=== PATIENT | female | born 1985 | race Caucasian/White ===

== ENCOUNTER 2018-04-27 17:16 | Observation (INO) | payer BC ==
[2018-04-27] MEDS ORDERED: NS 0.9% 1000 ML* 1,000 ML IV ONE (18:12)
[2018-04-27 18:31] LABS: ABS Basophils 0.1 10^3/ul (0-0.2); ABS Eosinophils 0.1 10^3/ul (0-0.6); ABS Lymphocytes 2.2 10^3/ul (1.0-4.8); ABS Monocytes 0.4 10^3/ul (0-0.8); ABS Neutrophils 5.8 10^3/ul (1.5-7.7); ABS Nucleated RBC 0 10^3/ul; Eosinophil % 0.8 % (0-6); Hematocrit 39 % (35-47); Hemoglobin 13.4 g/dl (12.0-16.0); Lymphocyte % 25.4 % (25-47); Mean Corpuscular HGB Conc 34 g/dl (31-36); Mean Corpuscular Hemoglobin 30 pg (27-31); Mean Corpuscular Volume 87 fL (80-97); Mean Platelet Volume 9.9 um3 (7.4-10.4); Nucleated Red Blood Cells % 0.1; Platelet Count 245 10^3/ul (150-450); Red Blood Count 4.55 10^6/ul (4.00-5.40); Red Cell Distribution Width 14 % (10.5-15); White Blood Count 8.6 10^3/ul (3.5-10.8)
[2018-04-27] MEDS ORDERED: Ondansetron INJ* 2 MG/ML VIAL IV ONE (18:52)
[2018-04-27 18:59] LABS: EGFR Non-African American 116.6 (>60)
[2018-04-27 19:05] LABS: Urine Appearance Clear; Urine Blood 3+ (Negative); Urine Color Yellow; Urine Ketones Negative (Negative); Urine Protein 1+(30 mg/dL) (Negative); Urine Red Blood Cell 3+(>10/hpf) (Absent); Urine Specific Gravity 1.018 (1.010-1.030); Urine Urobilinogen Negative (Negative); Urine White Blood Cell 3+(>20/hpf) (Absent)
--- NOTE | 2018-04-27 19:06 | ED ---
GI/ HPI - HPI Summary HPI Summary: This is scribe Lacy Kahn documenting for attending Shaheen Salomon MD. This patient is a 33 year old F presenting to [facility] with a chief complaint of right suprapubic pain and lower back pain worse on the right since 04/24/18. She additionally reports nausea and vaginal bleeding since 03/17/18, with bright red blood today. She states symptoms are worsened when eating. Pain is 6/10, upon triage. Patient reports four recent positive at home tests. PMHx of preeclampsia. Denies PMHx PID and STDs. May have history of endometriosis. No oral contraceptive use A1. I, Dr. Saolmon, personally performed the services described in this documentation as scribed in my presence and it is both accurate and complete. - History of Current Complaint Chief Complaint: EDAbdPain Time Seen by Provider: 04/27/18 18:02 Stated Complaint: ABD PAIN Hx Obtained From: Patient Onset/Duration: Started Days Ago Timing: Constant Current Severity: Moderate Vaginal Bleeding Description: Bright Red Pain Intensity: 6 Location of Pain: Suprapubic - right Associated Signs and Symptoms: Positive: Back Pain, Other: - vaginal bleeding - Allergy/Home Medications Allergies/Adverse Reactions: Allergies Allergy/AdvReac Type Severity Reaction Status Date / Time cefprozil [From Cefzil] Allergy Anaphylatic Verified 04/27/18 18:16 Shock latex Allergy Rash Verified 04/27/18 18:16 morphine Allergy Hives Verified 04/27/18 18:16 PMH/Surg Hx/FS Hx/Imm Hx Endocrine/Hematology History: Denies: Hx Diabetes Cardiovascular History: Reports: Hx Hypertension - preeclampsia - currently resolved EENT History: Denies: Hx Deafness - Immunization History Immunizations Up to Date: Yes Infectious Disease History: No Infectious Disease History: Denies: Traveled Outside the [place] in Last 30 Days - Social History Alcohol Use: Rare Substance Use Type: Reports: None Smoking Status (MU): Never Smoked Tobacco Review of Systems Positive: Nausea Positive: pain - suprapubic, other - vaginal bleeding Positive: Myalgia - back pain All Other Systems Reviewed And Are Negative: Yes Physical Exam - Summary Physical Exam Summary: VITAL SIGNS: Reviewed. GENERAL: Patient is a well-developed and nourished female who is lying comfortable in the stretcher. Patient is not in any acute respiratory distress. HEAD AND FACE: No signs of trauma. No ecchymosis, hematomas or skull depressions. No sinus tenderness. EYES: PERRLA, EOMI x 2, No injected conjunctiva, no nystagmus. EARS: Hearing grossly intact. Ear canals and tympanic membranes are within normal limits. MOUTH: Oropharynx within normal limits. NECK: Supple, trachea is midline, no adenopathy, no JVD, no carotid bruit, no c- spine tenderness, neck with full ROM. CHEST: Symmetric, no tenderness at palpation LUNGS: Clear to auscultation bilaterally. No wheezing or crackles. CVS: Regular rate and rhythm, S1 and S2 present, no murmurs or gallops appreciated. ABDOMEN: Soft, R pelvic tenderness. No signs of distention. No rebound no guarding, and no masses palpated. Bowel sounds are normal. EXTREMITIES: FROM in all major joints, no edema, no cyanosis or clubbing. NEURO: Alert and oriented x 3. No acute neurological deficits. Speech is normal and follows commands. SKIN: Dry and warm Triage Information Reviewed: Yes Vital Signs On Initial Exam: Initial Vitals Temp Pulse Resp BP Pulse Ox 98.9 F 79 16 147/73 100 04/27/18 17:19 04/27/18 17:19 04/27/18 17:19 04/27/18 17:19 04/27/18 17:19 Vital Signs Reviewed: Yes Diagnostics - Vital Signs Vital Signs Temp Pulse Resp BP Pulse Ox 04/27/18 17:19 98.9 F 79 16 147/73 100 - Laboratory Lab Results: Lab Results 04/27/18 04/27/18 Range/Units 18:26 18:26 WBC 8.6 (3.5-10.8) 10^3/ul RBC 4.55 (4.00-5.40) 10^6/ul Hgb 13.4 (12.0-16.0) g/dl Hct 39 (35-47) % MCV 87 (80-97) fL MCH 30 (27-31) pg MCHC 34 (31-36) g/dl RDW 14 (10.5-15) % Plt Count 245 (150-450) 10^3/ul MPV 9.9 (7.4-10.4) um3 Neut % (Auto) 67.7 (38-83) % Lymph % (Auto) 25.4 (25-47) % [place] % (Auto) 5.2 (0-7) % Eos % (Auto) 0.8 (0-6) % Baso % (Auto) 0.9 (0-2) % Absolute Neuts (auto) 5.8 (1.5-7.7) 10^3/ul Absolute Lymphs (auto) 2.2 (1.0-4.8) 10^3/ul Absolute Monos (auto) 0.4 (0-0.8) 10^3/ul Absolute Eos (auto) 0.1 (0-0.6) 10^3/ul Absolute Basos (auto) 0.1 (0-0.2) 10^3/ul Absolute Nucleated RBC 0 10^3/ul Nucleated RBC % 0.1 Sodium 136 (135-145) mmol/L Potassium 3.8 (3.5-5.0) mmol/L Chloride 107 (101-111) mmol/L Carbon Dioxide 24 (22-32) mmol/L Anion Gap 5 (2-11) mmol/L BUN 10 (6-24) mg/dL Creatinine 0.60 (0.51-0.95) mg/dL Est GFR ( Amer) 141.1 (>60) Est GFR (Non-Af Amer) 116.6 (>60) BUN/Creatinine Ratio 16.7 (8-20) Glucose 88 (70-100) mg/dL Calcium 9.1 (8.6-10.3) mg/dL Total Bilirubin 0.50 (0.2-1.0) mg/dL AST 14 (13-39) U/L ALT 9 (7-52) U/L Alkaline Phosphatase 37 (34-104) U/L C-Reactive Protein < 1.00 (<8.01) mg/L Total Protein 7.7 (6.4-8.9) g/dL Albumin 4.6 (3.2-5.2) g/dL Globulin 3.1 (2-4) g/dL Albumin/Globulin Ratio 1.5 (1-3) Lipase 19 (11.0-82.0) U/L Beta HCG, Quant Pending Result Diagrams: 04/27/18 18:26 04/27/18 18:26 Lab Statement: Any lab studies that have been ordered have been reviewed, and results considered in the medical decision making process. - Additional Comments Diagnostic Additional Comments: A Transvaginal US reveals, as per radiologist: 1. No evidence of an intrauterine gestation and therefore ectopic patency is not excluded. 2. Further potential evidence of an ectopic versus assuming repeat serum beta hCG indicating is the presence of a 2.9 cm structure in the right adnexa superior and lateral to the right ovary. ED Physician has reviewed this report. GIGU Course/Dx - Course Assessment/Plan: This patient is a 33-year-old female who presents to the emergency room with a chief complaint of right lower quadrant pain, right pelvic pain with vaginal bleeding. She reports that she took a couple test at home and they were positive. In the physical exam the patient has right pelvic pain more than right lower quadrant pain. Blood test results without any significant abnormality, beta hCG is 1748. Urinalysis contaminated. Since the patient has a right lower quadrant pain and right pelvic pain with a positive beta-hCG I have suspicion for an ectopic . Therefore I decided to do the pelvic ultrasound. Pelvic ultrasound impression : No evidence of intrauterine gestation therefore ectopic is not excluded. At this point I discussed my physical exam, findings and test results with Dr. Henson from and [employer] and she will consult. Dr. Henson came and examined the patient and the she thinks that the patient has an ectopic . Therefore the patient will be going to the OR with Dr. Gill. Patient is admitted to Dr. Henson. Patient is hemodynamically stable alert and oriented 3. - Diagnoses Provider Diagnoses: Ectopic - Physician Notifications Discussed Care Of Patient With: Shanon ARGUELLO Time Discussed With Above Provider: 20:30 Instructed by Provider To: Will See In ED - At 21:30 Dr. Henson accepts this patient for admission. Discharge - Sign-Out/Discharge Documenting (check all that apply): Patient Departure - Discharge Plan Condition: Good Disposition: ADMITTED TO [facility] - Billing Disposition and Condition Condition: GOOD Disposition: Admitted to [facility]
--- NOTE | 2018-04-27 19:12 | RAD ---
INDICATION: Reported positive test at home COMPARISON: None TECHNIQUE: Transvaginal scans were performed FINDINGS: There is no evidence of an intrauterine gestation and therefore the setting or possibly. Suggest, ectopic is not excluded. Suggest correlation with beta hCGs. The uterus measures 8.4 x 5.0 x 5.6 cm and the endometrial stripe 0.9 cm. There is a smaller free fluid adjacent to the right ovary. The right ovary measures 3.6 x 1.9 x 2.5 cm and is likely an involuting cyst measuring 1.8 cm. In the right adnexa is a second ill-defined structure measuring 2.9 x 1.4 x 2.1 cm which shows some vascularity and which could represent an ectopic IMPRESSION: 1. No evidence of an intrauterine gestation and therefore ectopic patency is not excluded. 2. Further potential evidence of an ectopic versus assuming repeat serum beta hCG indicating is the presence of a 2.9 cm structure in the right adnexa superior and lateral to the right ovary.
[2018-04-27] MEDS ORDERED: Scopolamine 1.5 mg* PATCH TRANSDERM ONE (21:34)
[2018-04-27] MEDS ORDERED: Buffered Lidocaine 0.9% SYRIN* 5 ML/SYR SYRINGE INTRADERM ONE (21:34)
[2018-04-27] MEDS ORDERED: Famotidine IV* 10 MG/ML 2 ML (20 mg) IV ONE (21:34)
[2018-04-27] MEDS ORDERED: HYDROmorphone INJ* 0.5 MG/0.5 ML SYRINGE IV PRN (21:37)
[2018-04-27] MEDS ORDERED: oxyCODONE/Acetamin 5/325 MG* TAB PO PRN (21:37)
[2018-04-27] MEDS ORDERED: PROCHLORPERAZINE INJ 5 MG/ML 2 ML VIAL IV PRN (21:37)
[2018-04-27] MEDS ORDERED: DiMENhydriNATE IV* 50 MG/ML VIAL IV PUSH PRN (21:37)
[2018-04-27] MEDS ORDERED: Naloxone* 0.4 MG/ML 1 ML VIAL IV PRN (21:37)
[2018-04-27] MEDS ORDERED: Midazolam* 1 MG/ML 5 ML VIAL (5 MG) ONE (21:49)
[2018-04-27] MEDS ORDERED: Atracurium* 10 MG/ML 10 ML VIAL ONE (21:49)
[2018-04-27] MEDS ORDERED: KETAMINE HCL* 50 MG/ML 10 ML VIAL ONE (21:49)
[2018-04-27] MEDS ORDERED: fentaNYL* 50 MCG/ML 2 ML VIAL (100 MCG VIAL) ONE ×2 (21:49→23:56)
[2018-04-27] MEDS ORDERED: Bupivacaine 0.25% W/EPI* 10 ML SDV ONE (22:10)
[2018-04-27] MEDS ORDERED: Clindamycin 900 MG IVPREMIX(* 900 MG/50 ML SDV IV ONE (22:21)
[2018-04-27] MEDS ORDERED: Famotidine IV* 10 MG/ML 2 ML (20 mg) ONE (23:04)
[2018-04-27] MEDS ORDERED: Dexamethasone IV* 4 MG/ML 1 ML (4 MG) ONE (23:04)
[2018-04-27] MEDS ORDERED: Propofol* 10 MG/ML 20 ML BTL IV PUSH ONE (23:04)
[2018-04-27] MEDS ORDERED: DiMENhydriNATE IV* 50 MG/ML VIAL ONE (23:04)
[2018-04-27] MEDS ORDERED: PROCHLORPERAZINE INJ 5 MG/ML 2 ML VIAL ONE (23:04)
[2018-04-27] MEDS ORDERED: Neostigmine Methylsulfate* 1 MG/ML 10 ML VIAL (1 mg/ml) ONE (23:04)
[2018-04-27] MEDS ORDERED: Glycopyrrolate IV* 0.2 MG/ML 1 ML VIAL ONE (23:04)
[2018-04-27] MEDS ORDERED: Scopolamine 1.5 mg* PATCH ONE (23:05)
[2018-04-27] MEDS ORDERED: Lidocaine 2% PF * 5 ML VIAL ONE (23:05)
[2018-04-27] MEDS ORDERED: Ketorolac INJ* 30 MG/ML 1 ML VIAL ONE (23:09)
[2018-04-27] MEDS ORDERED: Ondansetron INJ* 2 MG/ML VIAL ONE (23:09)
[2018-04-28] MEDS: fentaNYL* 50 MCG/ML 2 ML VIAL (100 MCG VIAL) IV PRN ×4 (00:03→00:32)
[2018-04-28] MEDS ORDERED: PROCHLORPERAZINE INJ 5 MG/ML 2 ML VIAL ONE (01:04)
[2018-04-28] MEDS ORDERED: Ibuprofen TAB* 600 MG PO PRN (01:33)
[2018-04-28] MEDS ORDERED: Acetaminophen TAB* 325 MG PO PRN (01:33)
[2018-04-28] MEDS ORDERED: Ondansetron INJ* 2 MG/ML VIAL IV PRN (01:33)
[2018-04-28 07:50] VITALS: BP 116/50
--- NOTE | 2018-04-29 10:48 | OP ---
OPERATIVE REPORT: DATE OF OPERATION: 04/27/18 DATE OF : 89 SURGEON: Shanon Henson MD JOB TRAINER: Dr. Hernandez. ANESTHESIOLOGIST: Dr. Verdin. ANESTHESIA: General endotracheal with local 14 cc of 0.25% Marcaine. PRE-OP DIAGNOSIS: Right ectopic . POST-OP DIAGNOSIS: Right ectopic . OPERATIVE PROCEDURE: Diagnostic laparoscopy and right salpingectomy. ESTIMATED BLOOD LOSS: 50 cc. URINE OUTPUT: 100 cc of clear yellow urine. FLUIDS: 1000 cc of crystalloids. FINDINGS: Revealed a dilated right fallopian tube densely adherent to right ovary, appeared to have clubbing of the fimbria; however, that was extruded ectopic and bleeding coming from the distal end of the tube. Normal-appearing uterus, retroverted, left fallopian tube appeared to be obstructed with blunting of the fimbria with complete occlusion of the tube. Normal-appearing left ovary, scarring in the posterior cul-de-sac. Approximately 50 cc of blood in the posterior cul-de- sac, normal-appearing bowel, normal-appearing appendix , normal-appearing liver edge. COMPLICATIONS: None apparent. DISPOSITION: Stable to recovery room. DESCRIPTION OF PROCEDURE: The patient was placed in dorsal lithotomy position. The legs were placed in universal Avila stirrups. The abdomen, perineum and vagina were prepped and draped in the sterile standard fashion. The patient was identified with universal protocol for correct procedure, patient and position. A sterile speculum was inserted to visualize grasping the anterior lip with a single tooth tenaculum and a Hulka clamp was placed. Single tooth tenaculum removed, sterile speculum removed. A Morin catheter was placed for drainage of clear yellow urine. Attention was then focused on the abdominal portion of the case. 0.25% Marcaine was injected in the umbilical space approximately 8 cc and then 2 cc was injected in the midline suprapubic. An incision was made with an 11 scalpel blade. Fascia was identified and opened with the 11 blade scalpel. Stay sutures of 0 Monocryl were placed on either edge of the fascial incisional opening. The blunt Yesy trocar and trocar sheath were then inserted, balloon was insufflated, scope confirmed excellent placement and pneumoperitoneum was created with CO2. At that point, an incision was made 2 fingerbreadths below the pubic symphysis with scalpel through the prior Marcaine injection and a blunt port was then inserted under direct visualization. The blunt probe was then used in the inferior port and the right ectopic was clearly identified with blood in the posterior cul-de-sac and the ectopic extruding partially and bleeding from the distal right fimbria. At that point, a second port was placed 5 mm inferior and lateral to the umbilical port on the right. 4 cc of 0.25% Marcaine was injected and an incision with 11 blade scalpel and a 5 mm blunt trocar and trocar sheath were visualized upon entry into the peritoneum. The LigaSure was then used to clamp and obliterate the blood supplied to the right fallopian tube and the ectopic was ruptured and obliterated the right fallopian tube. Complete hemostasis occurred along the dissection plane. The right salpingectomy was completed using a LigaSure. Cameras were changed from 10 mm to 5 mm port. The Endobag was then placed through the 10-mm port and the right fallopian tube was removed in total with the ectopic under direct visualization. The bag was removed with the ectopic in total, incorporated into the right tube with hemorrhage. The Yesy was then replaced 10 mm and 10 mm scope was used to revisualize the dissection plane of the right fallopian tube and salpingectomy site and it was noted to be hemostatic. The left tube was then visualized and was noted to be blunted. The left and right ovaries were noted to have a normal appearance. There was some scarring in the posterior cul-de-sac, there was no active endometriosis visualized. The appendix was visualized and noted to have a normal appearance as well as liver edge and bowel. After removal of the ectopic confirming hemostasis at the salpingectomy site on the right, the 5 mm ports were then removed under direct visualization and noted to be hemostatic. Then the 10 mm port was removed under direct visualization. The fascial defect at the umbilicus was reapproximated using 0 Monocryl x2 in interrupted [id number] fashion with the stay sutures tied to each other. The fascia was palpated and noted to have no defects. The 5 mm trocar and trocar sheath sites were reapproximated using 4-0 Monocryl and hemostasis was assured. The skin at the umbilical closure was carried out using 4-0 Monocryl for complete hemostasis. Steris were applied. The patient was then taken out of dorsal lithotomy position and universal stirrups and the patient was then taken to recovery room in stable condition. All sponge, instrument and blade counts were correct throughout the case. [id number]/[facility] #: [id number] [employer]
--- NOTE | 2018-04-30 15:37 | DS ---
DISCHARGE SUMMARY: DATE OF ADMISSION: 04/28/18 DATE OF DISCHARGE: 04/28/18 ADMITTING DIAGNOSIS: Right ectopic . DISCHARGE DIAGNOSIS: Right ectopic . PROCEDURE: Diagnostic laparoscopy and right salpingectomy. HISTORY OF PRESENT ILLNESS: The patient is a 33-year-old 4, para 2-0-1- 2, who came in 5 weeks and 4 days with an elevated beta hCG of greater than 1700 and a right adnexal mass superior to the ovary. The patient was presumed to have an ectopic as there was no intrauterine or clear extrauterine and her dates were very assured and beta hCG was consistent with ectopic . The patient did in fact have a right tubal ectopic that was ruptured with 50 cc of blood in the posterior cul-de-sac. A right salpingectomy was performed, please see operative note for specific details. The patient left the OR at around 11 p.m. and was unable to be discharged secondary to nausea and so was admitted briefly through the morning hours until she could be discharged around 7 in the morning. The patient was stable throughout her postop time and by the morning of 04/28/18, was ready for discharge after approximately 5 to 6 hours of monitoring. The patient was discharged to home in stable condition, was given discharge instruction. The patient already scheduled to see Dr. Lisa on 05/04/18, and will follow up with Dr. Lisa for an incision check and [employer]. The patient was aware of risks and benefits of the surgery and was stable upon discharge and will manage her pain with ibuprofen alternating with acetaminophen [id number]. All questions were answered prior to discharge. [id number]/[facility] #: [id number] [place]
[2018-04-30] MEDS ORDERED: Scopolamine PATCH Remove* 1 NOTE MISC PATCH OFF ONE (21:36)
== END 2018-04-28 08:00 | disposition home or self-care (01) ==
LOC: ED 17:16 → OR 21:38 → SSU 04-28 02:48
PROVIDERS: ADMIT Obstetrics & Gynecology; ATTEND Obstetrics & Gynecology
DX: O00.101 Right tubal pregnancy without intrauterine pregnancy (principal); N93.9 Abnormal uterine and vaginal bleeding, unspecified; M54.9 Dorsalgia, unspecified; R11.0 Nausea
CPT/HCPCS: 36415; 76817; 80053; 81003; 81015; 83690; 84702; 85025; 86140; 87086; 88305; 96374; 96375; 99283; A9270-GY; G0378; J0780; J1100; J1240; J1885; J2250; J2405; J2704; J2710; J3010